=== PATIENT | male | born 1975 | race Caucasian/White ===

== ENCOUNTER 2022-01-23 00:21 | Emergency (ER) | payer OTHER ==
[~2022-01-23] VITALS: Ht 182.9 cm; Wt 45.4 kg
[2022-01-23] MEDS ORDERED: HYDROcodone-ACET 5/325MG TAB PO ONE (01:30)
[2022-01-23 02:04] LABS: Basophils # (auto) 0 10 ^3/uL (0-0.2); Basophils % (auto) 0.3 % (0.0-2.0); Eosinophils # (auto) 0 10 ^3/uL (0-0.8); Eosinophils % (auto) 0.1 % (0.0-7.0); Hematocrit 44.5 % (41.0-53.0); Hemoglobin 15.2 g/dL (13.5-17.5); Lymphocytes # (auto) 1.7 10 ^3/uL (0.4-5.4); Lymphocytes % (auto) 12.9 % (10.0-50.0); Mean Corpuscular Hgb Conc. 34.2 g/dL (32.0-36.0); Mean Corpuscular Volume 87.6 fL (80.0-100.0); Monocytes # (auto) 0.6 10 ^3/uL (0-1.3); Monocytes % (auto) 4.5 % (0.0-12.0); Neutrophils # (auto) 10.6 10 ^3/uL (1.6-8.6); Neutrophils % (auto) 82.2 % (37.0-80.0); Red Blood Cells 5.08 10^6/uL (4.5-5.90); Red Cell Distribution Width 13.8 % (11.8-14.3); White Blood Cell 12.9 10^3/uL (4.4-10.8)
[2022-01-23] MEDS ORDERED: LIDOCAINE VISCOUS 2% 15ML UD PO ONE (02:15)
[2022-01-23] MEDS ORDERED: ALUM & MAG HYDROX-SIMETH LIQ(MAALOX) 30 ML PO ONE (02:15)
[2022-01-23] MEDS ORDERED: ONDANSETRON HCL 4 MG/2 ML VIAL IV ONE (02:15)
[2022-01-23] MEDS ORDERED: FAMOTIDINE (10MG/ML) 2ML VL IV ONE (02:15)
[2022-01-23] MEDS ORDERED: HYDROmorphone HCL 2 MG TAB PO ONE (02:15)
[2022-01-23 02:23] LABS: Albumin 3.5 g/dL (3.4-5.0); BUN/Creatinine Ratio 14.4; Calcium 8.8 mg/dL (8.5-10.1); Potassium 3.5 mmol/L (3.5-5.1)
[2022-01-23 02:26] LABS: Bilirubin, Total 0.4 mg/dL (0.2-1.0); Total Protein 6.8 g/dL (6.4-8.2)
[2022-01-23] MEDS ORDERED: HYDROmorphone HCL 2 MG/ML VL/or syr IV ONE (04:15)
[2022-01-23 04:22] LABS: Urine Bacteria FEW /hpf (None Seen); Urine Blood Negative /uL (Negative); Urine Mucus FEW (None Seen); Urine Specific Gravity 1.022 (1.001-1.035); Urine WBC 3 /hpf (0 - 3)
[2022-01-23 05:00] VITALS: BP 111/58
== END 2022-01-23 05:59 | disposition home or self-care (01) ==
LOC: ER 00:21 → EDSEX 00:21 → EDBD 00:21 → ER 05:59
DX: K57.32 Diverticulitis of large intestine without perforation or abscess without bleeding (principal); K85.90 Acute pancreatitis without necrosis or infection, unspecified
CPT/HCPCS: 36415; 80053; 81001; 83690; 84484; 85025; 93005; 96374; 96375; 99285; J1170; J2405; J3490